=== PATIENT | male | born 1965 | race Caucasian/White ===

== ENCOUNTER 2020-08-28 13:46 | Inpatient (IN) | payer OTHER ==
[~2020-08-28] VITALS: Ht 185.4 cm; Wt 108.2 kg
[2020-08-28 14:03] VITALS: BP 258/151
[2020-08-28 14:23] LABS: ABSOLUTE BASOPHILS 0.1 thou/uL (0.0-0.2); ABSOLUTE EOSINOPHILS 0.3 thou/uL (0.0-0.7); ABSOLUTE LYMPHOCYTES 1.6 thou/uL (0.8-5.3); ABSOLUTE MONOCYTES 0.8 thou/uL (0.0-1.2); BASOPHILS 0.6 %; EOSINOPHILS 2.7 %; HEMATOCRIT 44.6 % (42.0-52.0); HEMOGLOBIN 14.6 gm/dL (14.0-18.0); LYMPHOCYTES 16.3 %; MCH 28.5 pg (26.0-34.0); MCHC 32.7 g/dL (28.0-37.0); MCV 87.3 fL (80.0-100.0); MONOCYTES 8.2 %; MPV 9.2 fl. (7.2-11.1); NUCLEATED RBCS 0 /100WBC; PLATELET COUNT* 248 thou/uL (150-400); POLYS 72.2 %; RBC 5.11 mil/uL (4.50-6.00); WBC 9.6 thou/uL (4.0-11.0)
[2020-08-28 14:35] LABS: ALBUMIN 3.6 g/dL (3.4-5.0); CALCIUM 8.4 mg/dL (8.5-10.1); CREATININE 1.3 mg/dL (0.6-1.3); POTASSIUM 3.4 mmol/L (3.5-5.1); TOTAL BILIRUBIN 0.5 mg/dL (<0.1-1.0); TOTAL PROTEIN 7.2 g/dL (6.4-8.2)
[2020-08-28 15:20] LABS: CHOLESTEROL 214 mg/dL (<200); HDL CHOLESTEROL 51 mg/dL (>40); LDL CHOLESTEROL 138 mg/dL (<100); SERUM ASSESSMENT Clear; TC:HDL 4.2 Ratio (Not establshd); TRIGLYCERIDE 127 mg/dL (<150); VLDL 25 mg/dL (<40)
[2020-08-28 16:28] LABS: URINE BILIRUBIN NEGATIVE (Negative); URINE BLOOD NEGATIVE (Negative); URINE CLARITY CLEAR; URINE COLOR YELLOW; URINE GLUCOSE-RANDOM NEGATIVE (Negative); URINE KETONES NEGATIVE (Negative); URINE LEUKOCYTES-REFLEX NEGATIVE (Negative); URINE NITRITE-REFLEX NEGATIVE (Negative); URINE PROTEIN TRACE (Negative); URINE SPECIFIC GRAVITY 1.015 (1.005-1.030); URINE UROBILINOGEN 0.2 E.U./dl (0.2-1.0)
[2020-08-28 17:28] VITALS: BP 164/89
[2020-08-28 17:40] VITALS: BP 169/79
--- NOTE | 2020-08-28 18:29 | NUR ---
RECEIVED REPORT FROM ER,RN. ASSUMED CARE. PT TRANSFERRED TO UNIT AROUND 1740. IV INTACT RIGH AC. HEART MONITOR ATTACHED AT SR. PT UP ADLIB. SHOULD BE MONITORED FOR A LITTLE WHILE DUE TO SHORTNESS OF BREATH AND HYPERTENSIVE EPISODE. PT VOMITTED WHEN GOT UP TO GO TO BATHROOM. PT STATED "I HAVEN'T ATE ALL DAY." GAVE PT SOME CRACKERS AND SPRITE. HAS DINNER TRAY. TOLD TO TAKE IT SLOW. ON 1L NC. ORIENTED TO ROOM. ADMIT DONE IN CHART. VS CHARTED. CALL LIGHT WITHIN REACH. WILL CONTINUE TO MONITOR.
[2020-08-28 20:00] VITALS: BP 174/90
[2020-08-29] VITALS (7 sets, daily range): BP systolic 170–185; BP diastolic 84–102
[2020-08-29 05:32] LABS: CALCIUM 8.5 mg/dL (8.5-10.1); CREATININE 1.7 mg/dL (0.6-1.3); POTASSIUM 3.3 mmol/L (3.5-5.1)
--- NOTE | 2020-08-29 06:31 | NUR ---
PT ALERT ORIENTED. RESTED WELL THIS SHIFT. ORDERS FOUND FOR PT AT 2230. DR FENG CONSULTED AND NOTIFIED. ZOFRAN GIVEN ONCE FOR NAUSIA. BP ON THE HIGH SIDE 170S SYSTOLIC. PRN HYDRALAZINE FOR SBP >180. TELEMETRY SHOWS SR. NO CP
--- NOTE | 2020-08-29 10:08 | EKG ---
[place] [address] ELECTROCARDIOGRAM REPORT Name: JULES VARGAS Room: [address] IN M.R.#: [id number] Admission: 08/28/20 Attend Phys: Chrissy Wilhelm, Discharge: Date of : 69 Date of Service: 08/28/20 1359 Report #: [id number] THIS REPORT FOR: //name// [facility] ED Test Date: 2020-08-28 Test Time: 13:59:42 Pat Name: JULES VARGAS Department: Room: [facility] Gender: M Thermal Intelligence Analyst: MADONNA : 1965 Requested By: Yasmin Valentino Order Number: [id number] MD: Bebeto Cheek Measurements Intervals [place] Rate: 68 P: 27 NM: 179 QRS: 27 QRSD: 108 T: 222 QT: 457 QTc: 487 Interpretive Statements Sinus rhythm Left atrial enlargement INTRAVENTRICULAR CONDUCTION DELAY left type LVH with secondary repolarization abnormality ST depr, consider ischemia, inferior leads Borderline prolonged QT interval No previous ECG available for comparison Electronically Signed On 08-29-2020 10:07:56 CDT by Bebeto Cheek [email or web address] <ELECTRONICALLY SIGNED> By: Bebeto Cheek MD, FACC 08/29/20 1007 1359 1359 Bebeto Cheek MD, FACC /EPI
--- NOTE | 2020-08-29 10:43 | NUR ---
RECEIVED REPORT AROUND 0715. ASSUMED CARE. VS AND ASSESSMENT CHARTED. IV INTACT RIGHT AC. HEART MONITOR ATTACHED AT SR. NO PAIN THIS AM. PT LYING IN BED. MEDS GIVEN PER AUG. CALL LIGHT WITH IN REACH. WILL CONTINUE TO MONITOR.
[2020-08-29 12:03] LABS: CREATININE 1.7 mg/dL (0.6-1.3); POTASSIUM 3.4 mmol/L (3.5-5.1)
--- NOTE | 2020-08-29 12:40 | NUR ---
Pt is A&O. Resides at home with family. Independent. No DME. No hx of HH or SNF. Goal is home at dc, no needs anticipated. Anticipate dc tomorrow, Pt's Cr elevated overnight.
--- NOTE | 2020-08-29 13:58 | 2DMMODE ---
[place] [address] 2 D/M-MODE ECHOCARDIOGRAM Name: ALICIAKIRTI OTREZMarjorie Stratton Room: [address] IN [facility].#: [id number] Admission: 08/28/20 Attend Phys: Chrissy Wilhelm, Discharge: Date of : 69 Date of Service: 08/29/20 1358 Report #: [id number] THIS REPORT FOR: cc: DEDRA - No family physician/PCP DEDRA - No family physician/PCP Bebeto Cheek MD [facility] ~ APPROVED REPORT Study performed: 08/29/2020 09:57:09 EXAM: Comprehensive 2D, Doppler, and color-flow Echocardiogram Patient Location: In-Patient Room #: [facility] Status: routine BSA: 2.29 HR: 76 bpm BP: 172/91 mmHg Rhythm: NSR Other Information Study Quality: Good Indications Hypertension/HDD 2D Dimensions IVSd: 21.66 (7-11mm) LVOT Diam: 22.39 (18-24mm) LVDd: 46.12 mm PWd: 19.07 (7-11mm) Ascending Ao: 34.05 (22-36mm) LVDs: 29.03 (25-40mm) Aortic Root: 36.03 mm Volumes Left Atrial Volume (Systole) LA ESV Index: 44.40 mL/m2 Aortic Valve AoV Peak Joe.: 1.71 m/s AO Peak Gr.: 11.71 mmHg LVOT Max P.18 mmHg AO Mean Gr.: 6.14 mmHg LVOT Mean P.31 mmHg LVOT Max V: 1.75 m/s AO V2 VTI: 26.21 cm LVOT Mean V: 1.04 m/s ANTONIO (VTI): 3.90 cm2 LVOT V1 VTI: 25.97 [place] [address] 2 D/M-MODE ECHOCARDIOGRAM Name: JULES VARGAS Room: [address] IN ..#: [id number] Admission: 08/28/20 Attend Phys: Chrissy Wilhelm, Discharge: Date of : 69 Date of Service: 08/29/20 1358 Report #: [id number] Mitral Valve E/A Ratio: 1.94 MV Decel. Time: 198.91 ms MV E Max Joe.: 1.21 m/s MV PHT: 57.68 ms MVA (PHT): 3.81 cm2 TDI E/Lateral E': 17.29 E/Medial E': 24.20 Medial E' Joe.: 0.05 m/s Lateral E' Joe.: 0.07 m/s Pulmonary Valve PV Peak Joe.: 1.53 m/s PV Peak Gr.: 9.34 mmHg Left Ventricle The left ventricle is normal size. There is normal LV segmental wall motion. Moderate to severe concentric left ventricular hypertrophy. Left ventricular systolic function is normal. The left ventricular ejection fraction is within the normal range. LVEF is 60%. The left ventricular diastolic function is normal. Right Ventricle The right ventricle is normal size. The right ventricular systolic function is normal. Atria Left atrium is mildly dilated. The right atrium size is normal. Aortic Valve The aortic valve is normal in structure. No aortic regurgitation is present. There is no aortic valvular stenosis. Mitral Valve The mitral valve is normal in structure. Trace mitral regurgitation. No evidence of mitral valve stenosis. Tricuspid Valve The tricuspid valve is normal in structure. Unable to assess PA pressure. Trace tricuspid regurgitation. Pulmonic Valve The pulmonary valve is normal in structure. [place] [address] 2 D/M-MODE ECHOCARDIOGRAM Name: JULES VARGAS Room: [address] IN [facility]#: [id number] Admission: 08/28/20 Attend Phys: Chrissy Wilhelm, Discharge: Date of : 69 Date of Service: 08/29/20 1358 Report #: [id number] Great Vessels The aortic root is normal in size. IVC is normal in size and collapses >50% with inspiration. Pericardium There is no pericardial effusion. <Conclusion> The left ventricle is normal size. Moderate to severe concentric left ventricular hypertrophy. Left ventricular systolic function is normal. The left ventricular ejection fraction is within the normal range. LVEF is 60%. The left ventricular diastolic function is normal. The right ventricle is normal size. Left atrium is mildly dilated. The right atrium size is normal. The aortic valve is normal in structure. The mitral valve is normal in structure. Trace mitral regurgitation. The tricuspid valve is normal in structure. IVC is normal in size and collapses >50% with inspiration. There is no pericardial effusion. There is normal LV segmental wall motion. <ELECTRONICALLY SIGNED> By: Bebeto Cheek MD, FACC 08/29/20 1358 1358 1358 Bebeto Cheek MD, FACC /INF
--- NOTE | 2020-08-29 16:46 | NUR ---
NO NEW CHANGES. IV INTACT RIGHT AC. HEART MONITOR ATTACHED AT SR. PT UPADLIB. MEDS GIVEN PER AUG. HOURLY ROUNDING PERFORMED. NO PAIN REPORTED THIS SHIFT. CREATININE ELEVATED. GIVING FLUIDS. POSSIBLE D/C TOMORROW. CALL LIGHT WITHIN REACH. WILL CONTINUE TO MONITOR.
[2020-08-30 04:00] VITALS: BP 216/104
[2020-08-30 04:25] LABS: HEMATOCRIT 42.7 % (42.0-52.0); MCH 28.6 pg (26.0-34.0); MCHC 32.7 g/dL (28.0-37.0); MCV 87.6 fL (80.0-100.0); MPV 9.6 fl. (7.2-11.1); RBC 4.88 mil/uL (4.50-6.00); RDW-CV 14.1 % (10.5-14.5); WBC 11.5 thou/uL (4.0-11.0)
[2020-08-30 04:33] LABS: CREATININE 1.4 mg/dL (0.6-1.3); MAGNESIUM 2.2 mg/dL (1.8-2.4); POTASSIUM 3.2 mmol/L (3.5-5.1)
--- NOTE | 2020-08-30 06:02 | NUR ---
PT ALERT ORIENTED. PT ANXIOUS AT TIMES AND STATED HE WAS HAVING A HARD TIME BREATHING. O2 SATS WNL. HX ASTHMA. NOTIFIED. RESPIRATORY TX AND ONE TIME DOSE OF ATIVAN WAS ORDERED. PT RESTING WELL. 0400 BP 216/104. NOTIFIED ORDER OBTAINED FOR NORVAS. PRN HYDRALAZINE ALSO GIVEN. TELEMETRY SHOWS SR. ON RA.
[2020-08-30 08:00] VITALS: BP 174/87
[2020-08-30] MEDS ORDERED: LIPITOR20 MG PO (08:55)
[2020-08-30] MEDS ORDERED: CARVEDILOL12.5 MG PO (08:55)
[2020-08-30] MEDS ORDERED: PRINIVIL20 MG PO (08:55)
[2020-08-30 10:37] VITALS: BP 174/87
--- NOTE | 2020-08-30 14:49 | NUR ---
ASSUMED PT CARE AT 0730, PT AOX4, NO C/O PAIN OR SHORTNESS OF BREATH. PT WORKED W/ DR BONNER TODAY AND DC ORDERS RECEIVED. DC INSTRUCTIONS, CARE NOTES, SCRIPTS AND F/U APPTS GIVEN TO PT. PT COMMUNICATES UNDERSTANDING OF DC TEACHING. IV AND UTILIZATION REVIEW SPECIALIST REMOVED. PT DC'D BY W/ NURSING STAFF AND ALL PAPERWORK AND PERSONAL BELONGINGS AT APPROX 1200
== END 2020-08-30 11:55 | disposition home or self-care (01) | DRG 304 ==
LOC: M.ERS 13:46 → M.2W 14:57 → M.TBA-ER 14:57 → M.2W 17:45
PROVIDERS: Nurse Practitioner Family; Registered Nurse; ADMIT Internal Medicine; ATTEND Internal Medicine
DX: I16.1 Hypertensive emergency (principal); N17.0 Acute kidney failure with tubular necrosis; I10 Essential (primary) hypertension; I44.7 Left bundle-branch block, unspecified; F10.10 Alcohol abuse, uncomplicated; Y90.9 Presence of alcohol in blood, level not specified; E87.6 Hypokalemia; E66.9 Obesity, unspecified; M10.9 Gout, unspecified; R77.8 Other specified abnormalities of plasma proteins; E78.5 Hyperlipidemia, unspecified; Z20.822 Contact with and (suspected) exposure to COVID-19; Z68.31 Body mass index [BMI] 31.0-31.9, adult